=== PATIENT | male | born 1940 | race Caucasian/White ===

== ENCOUNTER 2017-04-13 06:50 | Observation (INO) ==
[2017-04-13] MEDS ORDERED: Naloxone 0.4 MG/ML INJ IVP PRN (09:47)
--- NOTE | 2017-04-13 10:14 | Cardiology History & Physical ---
Date of Encounter: 04/13/17 Time of Encounter: 09:30 Assessment and Plan (1) Atrial fibrillation with RVR Current Visit: Yes Status: Acute Per cardiology: -Known paroxysmal atrial fibrillation. -Presented to [place] ER with chest pain and palpitations. -ECG with atrial fibrillation with RVR, HR 119. -Per bedside telemetry HRs 100-110s. -Chads 2 vasc score 5 (age, HTN, vascular disease, DM). Patient is anticoagulated with xarelto. Denies missing doses in the past 30 days. Patient states takes xarelto in the evening. -Patient admits to snoring and states she notices periods of apnea. Patient was set up for outpatient sleep study, however he did not complete. -On toprol 100mg daily in outpatient setting. -Echo 04/03/16 with LVEF 60-65% -Per discussion with , will start cardizem drip, titrate for HR less than 100. -Will continue xarelto. -Of note, patient requested DNR-CCA code status to RN. I spoke at length regarding code status with patient. Patient and agreeable for DNR-CCA code status, does not want CPR, intubation, or defibrillation. Will order DNR-CCA code status services engineer consulted for proper documentation of code status. The assessment and plan as outlined above was discussed with the patient and/or family members who expressed understanding and agreement. All questions were answered. (2) Chest pain Current Visit: No Status: Acute Per cardiology: -Presented to [facility] with complaints of chest pain/pressure and palpitations. -States pressure woke him up from sleep. -Denies aggravating factors. -States pain lessened with nitro, but was not relieved. -Denies exertional chest pain, denies worsening fatigue or shortness of breath. -Rates pain now 1/10. -Troponin negative x1. -ECG with no ischemic changes. -Suspect pain may be related to a.fib with RVR. -Will trend troponins. -Can consider repeating limited echo once HRs controlled. The assessment and plan as outlined above was discussed with the patient and/or family members who expressed understanding and agreement. All questions were answered. Qualifiers: Chest pain type: unspecified Qualified Code(s): R07.9 - Chest pain, unspecified History of Present Illness Chief complaint: chest pain, palpitations HPI: Mr. Nina is a 76 year old male with a relevant past medical history of HTN, DM , paroxysmal atrial fibrillation, and carotid endarterectomy. Patient reports he was sleeping, when he was woken up by mid sternal chest pressure. Patient rates 2/10. Patient denies aggravating factors. Patient reports pain lessened with nitroglycerin, but did not relieve pain. Patient reports chest pressure now 1/10. Patient presented to [facility] and was noted to be in atrial fibrillation with RVR. Er physician spoke with , nonprofit manager amusement ride operator, who accepted patient for admission to cardiology. Patient admits to palpitations. Patient denies worsening shortness of breath or worsening fatigue. Patient reports he is fairly inactive at home, but denies exertional chest pain. Patient reports he snores and states she notices periods of apnea. Patient states he was supposed to complete outpatient sleep study, however he did not complete. Past Med Surg Social Fam HX - Past Medical History Attestation: Yes The following information was validated with the patient. Source: patient, old records reviewed, obtained from family Medical history: atrial fibrillation, diabetes, GERD, hypertension Psychiatric history: no psych history - Past Surgical History Surgical History: carotid endarterectomy, other - Social History Smoking Status: Never smoker Smokeless Tobacco Status: No Alcohol use: none Drug use: none - Family History Mother Living Status: Hx Family Cardiac Disorders: Yes Brother Living Status: Still Living Hx Family Cardiac Disorders: Yes Sister Living Status: Still Living Hx Family Cancer: Yes (liver cancer) Father Family Member Ethnicity: Non- Living Status: Hx Family Cardiac Disorders: Yes Medications and Allergies Apixaban [Eliquis] 5 mg PO BID #60 tablet 04/03/16 [Rx] Aspirin 325 mg PO DAILY 04/03/16 [History] Atorvastatin Calcium [Lipitor] 20 mg PO HS #30 tablet 04/03/16 [Rx] Betamethasone Bozena 0.1% Crm [Valisone 0.1%] 1 appl TP BID 04/03/16 [History] Diltiazem CD (24hr) [Cardizem CD] 120 mg PO DAILY #30 cap.er.24h 04/03/16 [Rx] Ibuprofen [Advil] 200 mg PO DAILY PRN 04/03/16 [History] Lisinopril [Zestril] 20 mg PO DAILY 04/03/16 [History] Multivitamin [Multi-Day Vitamins] 1 each PO DAILY 04/03/16 [History] Nystatin Cream [Mycostatin Cream] 1 appl TP BID 04/03/16 [History] Omeprazole Magnesium [Prilosec Otc] 20 mg PO DAILY 04/03/16 [History] glipiZIDE [Glipizide] 10 mg PO BID 04/03/16 [History] metFORMIN [Glucophage] 500 mg PO BIDWM 04/03/16 [History] 3 Allergy/AdvReac Type Severity Reaction Status Date / Time Snckhra-Ofg-Rlq Reductase Allergy Nausea Verified 04/13/17 06:40 Inhibitor [Statins] meperidine [From Demerol] AdvReac Vomiting Verified 04/13/17 05:39 All Systems Review: A 10-system review of systems was performed and is negative for pertinent findings except as documented above in the HPI. - Cardiovascular Cardiovascular: as per HPI, chest pain at rest, palpitations Physical Examination Vital Signs, Last 4 Hours Temp Pulse Resp BP Pulse Ox 04/13/17 08:30 104 04/13/17 08:23 97 F L 110 18 149/99 97 General: Conversant, No Apparent Distress HEENT: Atraumatic, Normocephaly, Mucus Membranes Moist Neck: No JVD, Normal carotid pulses Cardiac: Normal S1 and S2, No Murmur, Other (Irregularly, irregular) Lungs: Normal Breath Sounds, No Wheeze, Rales, Rhonchi Neuro: Alert and responsive, No focal deficits noted Abdomen: Soft, Non-Tender Skin: No rashes noted on visualized skin Musculoskeletal: No Chest Wall Tenderness Extremities: No Clubbing, No Cyanosis, No Edema, Normal Pulses Results Active Medications Acetaminophen (Tylenol) 650 mg PO Q6HR PRN PRN Reason: Mild Pain (1-3) Stop: 10/13/17 09:48 Naloxone HCl (Narcan) 0.4 mg IVP Q2MIN PRN PRN Reason: Opioid Reversal Stop: 10/13/17 09:48 Laboratory Tests 04/10/17 04/13/17 04/13/17 10:37 06:05 06:05 WBC 7.4 Hgb 14.5 Plt Count 237 Potassium 3.8 Creatinine 1.17 1.20 Troponin I TSH 2.302 04/13/17 06:05 WBC Hgb Plt Count Potassium Creatinine Troponin I 0.01 TSH - Imaging and Cardiology Chest Xray: report reviewed Echo: report reviewed - EKG Interpretation EKG results cardiology: personally reviewed (ECG with atrial fibrillation with RVR, HR 119.), other (Per bedside telemetry, HR 100-110s, atrial fibrillation.)
[2017-04-13] MEDS ORDERED: Nitroglycerin 0.4 MG TAB.SUBL SL PRN (12:31)
[2017-04-13] MEDS ORDERED: Dextrose Gel 15 GM PO PRN ×2 (12:51)
[2017-04-13] MEDS ORDERED: *HR* Dextrose 50 % in Water (Syg) 50 ML SYRINGE IVP PRN (12:51)
[2017-04-13] MEDS ORDERED: D5% in Water 1,000 ML IVC PRN (12:51)
[2017-04-13] MEDS: Aspirin Enteric Coated 81 MG Tablet PO SCH (15:01)
[2017-04-13] MEDS: Multivit/Ca/Min/Fe/FA 1 TAB TABLET PO SCH (15:01)
[2017-04-13] MEDS: Acetaminophen 325 MG TABLET PO PRN ×2 (15:01→23:15)
[2017-04-13] MEDS: Insulin LISPRO 300 UNITS/3 ML VIAL SQ SCH ×2 (16:18→17:18)
[2017-04-13] MEDS ORDERED: Ondansetron 4 MG/2 ML VIAL IVP PRN (16:35)
[2017-04-13] MEDS ORDERED: *HR* Morphine 2 MG/ML SYRINGE IVP PRN (16:36)
[2017-04-13] MEDS: *HR* Metformin 500 MG TABLET PO SCH (17:20)
[2017-04-13] MEDS ORDERED: *HR* Rivaroxaban 10 MG TABLET PO SCH (18:00)
[2017-04-13] MEDS: *HR* GlipiZIDE 5 MG TABLET PO SCH (20:43)
[2017-04-14 05:27] LABS: Basophils # 0.1 K/mcL (0.0-0.2); Basophils % 0.6 %; Eosinophils # 0.4 K/mcL (0.0-0.6); Eosinophils % 4.6 %; Hematocrit 39.4 % (37.5-50.1); Hemoglobin 13.3 g/dL (12.9-16.9); Immature Granulocytes % 0.4 % (0-4); Lymphocytes # 2.6 K/mcL (0.6-4.6); Lymphocytes % 32.9 %; Mean Corpuscular HGB Conc 33.8 g/dL (31.6-35.5); Mean Corpuscular Volume 88.7 fL (83.0-100.0); Mean Platelet Volume 10.4 fL (9.4-12.4); Monocytes # 0.7 K/mcL (0.0-1.3); Monocytes % 8.3 %; Neutrophils # 4.2 K/mcL (1.6-8.9); Platelet Count 238 K/mcL (140-400); Red Blood Count 4.44 M/mcL (4.19-5.50); Red Cell Distribution Width 12.8 % (11.5-14.5); Segmented Neutrophils % 53.2 %
[2017-04-14 05:57] LABS: BUN/Creatinine Ratio 18 (6-26); Blood Urea Nitrogen 17 mg/dL (8-26); Calcium 9.4 mg/dL (8.6-10.8); Carbon Dioxide 20 mEq/L (19-29); Chloride 106 mEq/L (98-109); Glucose 135 mg/dL (70-99); Magnesium 1.7 mg/dL (1.6-2.6); Osmolality,Calculated 290 (280-300); Potassium 3.8 mEq/L (3.5-4.5); Sodium 138 mEq/L (136-145); eGFR For African Americans > 60 (> 60); eGFR For Non-African Americans > 60 (> 60)
[2017-04-14] MEDS: Multivit/Ca/Min/Fe/FA 1 TAB TABLET PO SCH (07:26)
[2017-04-14] MEDS: *HR* Metformin 500 MG TABLET PO SCH (07:26)
[2017-04-14] MEDS: Insulin LISPRO 300 UNITS/3 ML VIAL SQ SCH ×2 (07:26→11:54)
[2017-04-14] MEDS: Aspirin Enteric Coated 81 MG Tablet PO SCH (07:26)
[2017-04-14] MEDS: *HR* GlipiZIDE 5 MG TABLET PO SCH (07:26)
[2017-04-14] MEDS ORDERED: Diltiazem CD (24hr) 240 MG CAPSULE PO SCH (09:00)
--- NOTE | 2017-04-14 10:10 | Cardiology Progress Note ---
Date of Encounter: 04/14/17 Time of Encounter: 08:00 Assessment and Plan (1) Atrial fibrillation with RVR Current Visit: Yes Status: Acute Per cardiology: -Known paroxysmal atrial fibrillation. -Presented to [place] ER with chest pain and palpitations. -ECG with atrial fibrillation with RVR, HR 119. -Telemetry reviewed with average HR 86, a.fib. -Currently on cardizem drip at 10mg/hour. -Chads 2 vasc score 5 (age, HTN, vascular disease, DM). Patient is anticoagulated with xarelto. Denies missing doses in the past 30 days. Patient states takes xarelto in the evening. -Patient admits to snoring and states she notices periods of apnea. Patient was set up for outpatient sleep study, however he did not complete. -Echo 04/03/16 with LVEF 60-65% -Cardizem drip stopped and started cardizem CD 240mg. -Will re-evaluate this afternoon for possible discharge. -Recommend outpatient sleep study. -Of note, patient requested DNR-CCA code status to RN. I spoke at length regarding code status with patient. Patient and agreeable for DNR-CCA code status, does not want CPR, intubation, or defibrillation. Will order DNR-CCA code status supervisor customer services consulted for proper documentation of code status. The assessment and plan as outlined above was discussed with the patient and/or family members who expressed understanding and agreement. All questions were answered. (2) Chest pain Current Visit: No Status: Inactive Per cardiology: -Presented to [place] with complaints of chest pain/pressure and palpitations. -States pressure woke him up from sleep. -Denies aggravating factors. -States pain lessened with nitro, but was not relieved. -Denies exertional chest pain, denies worsening fatigue or shortness of breath. -Denies chest pain overnight, since HRs have been controlled. -Troponin negative x3. -ECG with no ischemic changes. -Suspect pain may be related to a.fib with RVR. -Can consider outpatient sleep study. The assessment and plan as outlined above was discussed with the patient and/or family members who expressed understanding and agreement. All questions were answered. Qualifiers: Chest pain type: unspecified Qualified Code(s): R07.9 - Chest pain, unspecified Discussion w patient/family: The assessment and plan as outlined above was discussed with the patient and/or family members who expressed understanding and agreement. All questions were answered. Thank you for involving us in the care of your patient. Please call with any questions. Discussed and reviewed with . Subjective Principal diagnosis: a.fib RVR Interval history: Patient states he feels much better this morning. Patient denies chest pain overnight. Objective Vital Signs, Last 4 Hours Temp Pulse Resp BP Pulse Ox 04/14/17 07:11 97.7 F 81 18 134/77 94 General: Conversant, No Apparent Distress HEENT: Atraumatic, Normocephaly, Mucus Membranes Moist Neck: No JVD, Normal carotid pulses Cardiac: Normal S1 and S2, No Murmur, Other (Irregularly, irregular) Lungs: Normal Breath Sounds, No Wheeze, Rales, Rhonchi Neuro: Alert and responsive, No focal deficits noted Abdomen: Soft, Non-Tender Skin: No rashes noted on visualized skin Musculoskeletal: No Chest Wall Tenderness Extremities: No Clubbing, No Cyanosis, No Edema, Normal Pulses Results 04/14/17 04:35 04/14/17 04:35 Lab Results 04/13/17 04/13/17 04/13/17 10:08 15:55 21:56 WBC Hgb Hct Plt Count Sodium Potassium Chloride Carbon Dioxide BUN Creatinine Glucose Calcium Magnesium Troponin I 0.01 0.00 0.00 04/14/17 04/14/17 04:35 04:35 WBC 7.8 Hgb 13.3 Hct 39.4 Plt Count 238 Sodium 138 Potassium 3.8 Chloride 106 Carbon Dioxide 20 BUN 17 Creatinine 0.97 Glucose 135 H Calcium 9.4 Magnesium 1.7 Troponin I Active Medications Acetaminophen (Tylenol) 650 mg PO Q6HR PRN PRN Reason: Mild Pain (1-3) Stop: 10/13/17 09:48 Last Admin: 04/13/17 23:15 Dose: 650 mg Aspirin (Aspirin Ec) 81 mg PO DAILY [facility] Stop: 10/13/17 15:01 Last Admin: 04/14/17 07:26 Dose: 81 mg Dextrose/Water (Dextrose 50% (Syg)) 25 ml IVP AD PRN PRN Reason: Hypoglycemia Stop: 10/13/17 12:52 Diltiazem HCl (Cardizem Cd) 240 mg PO DAILY [facility] Stop: 10/14/17 09:01 Last Admin: 04/14/17 09:57 Dose: 240 mg Diphenhydramine HCl (Benadryl) 25 mg PO HS PRN PRN Reason: Insomnia Stop: 10/13/17 16:36 Last Admin: 04/13/17 23:15 Dose: 25 mg Glipizide (Glucotrol) 10 mg PO BID [facility] Stop: 10/13/17 21:01 Last Admin: 04/14/17 07:26 Dose: 10 mg Glucagon (Glucagen) 1 mg IM ONCE PRN PRN Reason: Hypoglycemia Stop: 10/13/17 12:52 Glucose (Gluctose) 15 gm PO ONCE PRN PRN Reason: Hypoglycemia Stop: 10/13/17 12:52 Glucose (Gluctose) 30 gm PO ONCE PRN PRN Reason: Hypoglycemia Stop: 10/13/17 12:52 Dextrose (Dextrose 5%) 1,000 mls @ 100 mls/hr IVC .Q10H PRN PRN Reason: HYPOGLYCEMIA Stop: 10/13/17 12:52 Insulin Human Lispro (Humalog) 0 units SQ TIDAC MY PRN Reason: Protocol Stop: 10/13/17 13:01 Last Admin: 04/14/17 07:26 Dose: Not Given Metformin HCl (Glucophage) 500 mg PO BIDWM MY PRN Reason: Protocol Stop: 10/13/17 17:01 Last Admin: 04/14/17 07:26 Dose: 500 mg Morphine Sulfate (Morphine Sulfate) 2 mg IVP Q4HR PRN PRN Reason: severe pain Stop: 10/13/17 16:37 Last Admin: 04/14/17 01:33 Dose: 2 mg Multivitamins/Calcium (Thera M Plus) 1 tab PO DAILY [facility] Stop: 10/13/17 15:01 Last Admin: 04/14/17 07:26 Dose: 1 tab Naloxone HCl (Narcan) 0.4 mg IVP Q2MIN PRN PRN Reason: Opioid Reversal Stop: 10/13/17 09:48 Nitroglycerin (Nitroglycerin) 0.4 mg SL Q5MIN PRN PRN Reason: Chest Pain Stop: 10/13/17 12:32 Omeprazole (Prilosec) 20 mg PO DAILY [facility] Stop: 10/13/17 15:01 Last Admin: 04/14/17 07:26 Dose: 20 mg Ondansetron HCl (Zofran) 4 mg IVP Q6HR PRN; Protocol PRN Reason: Nausea Stop: 10/13/17 16:36 Rivaroxaban (Xarelto) 20 mg PO QPM MY Stop: 10/13/17 18:01 Last Admin: 04/13/17 17:20 Dose: 20 mg - Imaging and Cardiology Chest Xray: report reviewed Echo: report reviewed - EKG Interpretation EKG results cardiology: other (Telemetry reviewed with average HR 86, atrial fibrillation. PVCs noted.) - VTE Reasons for not Prescribing Prophylaxis: Not indicated-Anticoagulated or INR therapeutic Consult Discharge Plan - Plan Referrals: Timothy Srinivasan MD [Primary Care Provider] - 04/22/17 1:30 pm () Bambi Caceres DO [Partnered Physician] - 04/30/17 1:50 pm
--- NOTE | 2017-04-14 16:03 | Discharge Summary ---
Date of Encounter: 04/14/17 Time of Encounter: 16:00 - Discharge Diagnosis (1) Atrial fibrillation with RVR Priority: Primary Status: Acute Comments: A.fib RVR on admission. (2) Chest pain Priority: Secondary Status: Resolved Comments: Had chest pain when tachycardic. Now resolved. Qualifiers: Chest pain type: unspecified Qualified Code(s): R07.9 - Chest pain, unspecified - Discharge Medications Prescriptions: Diltiazem CD (24hr) [Cardizem CD] 240 mg PO DAILY #30 cap.er.24h Home Medications: Multivitamin [Multi-Day Vitamins] 1 each PO DAILY 04/03/16 [History] Omeprazole Magnesium [Prilosec Otc] 20 mg PO DAILY 04/03/16 [History] glipiZIDE [Glipizide] 10 mg PO BID 04/03/16 [History] metFORMIN [Glucophage] 500 mg PO BIDWM 04/03/16 [History] Aspirin [Lo-Dose Aspirin EC] 81 mg PO DAILY 04/13/17 [History] Rivaroxaban [Xarelto] 20 mg PO QPM 04/13/17 [History] Diltiazem CD (24hr) [Cardizem CD] 240 mg PO DAILY #30 cap.er.24h 04/14/17 [Rx] Lisinopril [Zestril] 5 mg PO DAILY #30 tablet 04/14/17 [Rx] Allergies/Adverse Reactions: 3 Allergy/AdvReac Type Severity Reaction Status Date / Time meperidine [From Demerol] AdvReac Vomiting Verified 04/13/17 13:39 Kacetev-Kcc-Wmx Reductase AdvReac Nausea Verified 04/13/17 13:39 Inhibitor [Statins] Date of admission: 04/13/17 08:13 Primary care physician: Timothy Srinivasan MD Discharging clinician: Brittney Dias date of discharge: 04/14/17 - Patient Status Disposition: Home, Self-Care Condition: Good Functional capacity at discharge: independent ambulation Overall status at discharge: patient is progressing back to baseline - Discharge Instructions Follow Up With: Timothy Srinivasan MD [Primary Care Provider] - 04/22/17 1:30 pm () Bambi Caceres DO [Partnered Physician] - 04/30/17 1:50 pm - Diet and Activity Activity: increase activity as tolerated Diet: low fat, low cholesterol, low salt diet - Hospital Course Hospital course: Mr. Nina is a 76 year old male who was admitted for atrial fibrillation with RVR. Was on cardizem drip and converted to oral cardizem this morning. Stopped norvasc. Will decrease home lisinopril dose to allow BP room for cardizem. Metoprolol was also stopped. Average HR previous 4 hours noted to be 91. On xarelto for anticoagulation. Had chest pain on admission when tachycardic. Troponins negative x3. Denies chest pain overnight, since HRs controlled. Patient reports symptoms of sleep apnea. Recommend outpatient sleep study. Patient is being prepped for discharge home today in stable condition. Patient has follow up set with [facility]. - Time Spent with Patient Total time spent providing and/or coordinating discharge services: Less than 30 minutes Physical Examination Vital Signs Temperature 97 F L 04/13/17 08:23 Pulse Rate 110 04/13/17 08:23 Respiratory Rate 18 04/13/17 08:23 Blood Pressure 149/99 04/13/17 08:23 O2 Sat by Pulse Oximetry 97 04/13/17 08:23 Temperature 97.6 F 04/14/17 11:25 Pulse Rate 85 04/14/17 15:50 Respiratory Rate 12 04/14/17 11:25 Blood Pressure 146/77 04/14/17 11:25 O2 Sat by Pulse Oximetry 95 04/14/17 11:25 General: Conversant, No Apparent Distress HEENT: Atraumatic, Normocephaly, Mucus Membranes Moist Neck: No JVD, Normal carotid pulses Cardiac: Normal S1 and S2, No Murmur, Other (Irregularly, irregular) Lungs: Normal Breath Sounds, No Wheeze, Rales, Rhonchi Neuro: Alert and responsive, No focal deficits noted Abdomen: Soft, Non-Tender Skin: No rashes noted on visualized skin Musculoskeletal: No Chest Wall Tenderness Extremities: No Clubbing, No Cyanosis, No Edema, Normal Pulses - VTE Reasons for not Prescribing Prophylaxis: Not indicated-Anticoagulated or INR therapeutic
[2017-04-14 16:16] VITALS: BP 158/57
== END 2017-04-14 16:57 | disposition home or self-care (01) ==
LOC: 2NNU
PROVIDERS: ADMIT Internal Medicine Cardiovascular Disease; ATTEND Internal Medicine Cardiovascular Disease